=== PATIENT | female | born 1950 | race Hispanic/Latino ===

== ENCOUNTER → 2023-09-16 | Outpatient (CLI) | payer MEDICARE, BC | END | disposition home or self-care (01) | LOC: SHCH 09:39 | PROVIDERS: ATTEND Internal Medicine Cardiovascular Disease | DX: I08.8 Other rheumatic multiple valve diseases (principal); R01.1 Cardiac murmur, unspecified | CPT/HCPCS: 93306 ==

== ENCOUNTER → 2025-01-20 | Outpatient (CLI) | payer MEDICARE, BC ==
--- NOTE | 2025-01-21 08:22 | HMCIMG ---
EXAMINATION: ULTRASOUND EXAMINATION OF THE KIDNEYS WITH SPECTRAL DOPPLER OF THE RENAL VESSELS. CLINICAL HISTORY: Hypertension. COMPARISON: None. TECHNIQUE: Grayscale and color ultrasound images of the kidneys, and spectral Doppler of the renal arteries are submitted. FINDINGS: The kidneys are smaller in caliber, the right kidney measures 7.3 x 3.6 x 5.1 cm and the left kidney measures 8.3 x 3.4 x 3.5 cm in craniocaudal, AP, and transverse dimensions respectively. There is normal renal cortical thickness, and increased cortical echogenicity. There is no renal calculus bilaterally or left hydronephrosis. There is possible mild right hydronephrosis. Right Peak systolic velocities within the proximal, mid, and distal main right renal artery are 17, 32, and 25 cm/s respectively. Left Peak systolic velocities within the proximal, mid, and distal main left renal artery are 13, 13, and 18 cm/s respectively. There are normal waveforms in the intra-renal arteries. Peak systolic velocity within the abdominal aorta at the level of the renal arteries is 53 cm/s Right renal to aortic ratio: 0.6 Left renal to aortic ratio: 0.5 IMPRESSION: There is no renal arterial stenosis by measurement criteria. Bilateral atrophic kidneys with parenchymal disease. Mild right hydronephrosis. Recommend CT abdomen and pelvis. /Shahla
== END | disposition home or self-care (01) ==
LOC: RAH 08:48
PROVIDERS: ATTEND Internal Medicine Cardiovascular Disease
DX: N26.1 Atrophy of kidney (terminal) (principal); N13.30 Unspecified hydronephrosis; I10 Essential (primary) hypertension
CPT/HCPCS: 93975